=== PATIENT | female | born 1965 | race Caucasian/White ===

== ENCOUNTER → 2019-12-01 15:32 | Outpatient (BNVA) | payer SELFPAY | PROVIDERS: Family Provider Nurse Practitioner Family; PCP Nurse Practitioner Family; Visit Provider Registered Nurse | DX: R53.83 Other fatigue (principal); I10 Essential (primary) hypertension; R25.2 Cramp and spasm; F17.210 Nicotine dependence, cigarettes, uncomplicated | CPT/HCPCS: 80053; 85025 ==

== ENCOUNTER → 2019-12-24 15:03 | Outpatient (BNVA) | payer SELFPAY | PROVIDERS: Family Provider Nurse Practitioner Family; PCP Nurse Practitioner Family; Visit Provider Registered Nurse | DX: E61.1 Iron deficiency (principal); J45.20 Mild intermittent asthma, uncomplicated; F17.210 Nicotine dependence, cigarettes, uncomplicated | CPT/HCPCS: 82607; 82728; 83550; 84443; 84466; 85007; 85027 ==

== ENCOUNTER 2020-02-10 10:19 | Outpatient (RCR) | payer MEDICARE, MEDICAID, SELFPAY ==
[2020-01-27] MEDS: ferric carboxy (IVPB) 750 MG in sodium chloride 0.9% (100 ml) 100 ML 345 MG IV (08:51)
[2020-01-27 08:53] VITALS: BP 140/75; PULSE 73; RESP 18; TEMP 37.3; O2SAT 99
[2020-02-03 10:24] VITALS: BP 131/69; PULSE 70; RESP 18; TEMP 37; O2SAT 99
[2020-02-03] MEDS: ferric carboxy (IVPB) 750 MG in sodium chloride 0.9% (100 ml) 100 ML 345 MG IV (10:53)
[2020-02-10] MEDS: ferric carboxy (IVPB) 750 MG in sodium chloride 0.9% (100 ml) 100 ML 345 MG IV (10:51)
[2020-02-10 10:52] VITALS: BP 144/79; PULSE 67; RESP 18; TEMP 36.3; O2SAT 99
== END 2020-02-18 23:59 | disposition home or self-care (01) ==
LOC: OPS 10:19
PROVIDERS: PCP Nurse Practitioner Family; Visit Provider Internal Medicine
DX: K90.9 Intestinal malabsorption, unspecified (principal)
CPT/HCPCS: 96365; J1439

== ENCOUNTER → 2020-02-26 11:42 | Outpatient (BNVA) | payer MEDICARE, MEDICAID, SELFPAY | PROVIDERS: PCP Nurse Practitioner Family; Visit Provider Internal Medicine | DX: K90.9 Intestinal malabsorption, unspecified (principal) | CPT/HCPCS: 83550; 85025 ==

== ENCOUNTER → 2020-08-18 09:07 | Outpatient (BNVA) | payer MEDICARE, MEDICAID, SELFPAY | PROVIDERS: PCP Nurse Practitioner Family; Visit Provider Registered Nurse | DX: D50.9 Iron deficiency anemia, unspecified (principal); I10 Essential (primary) hypertension | CPT/HCPCS: 83550; 85025 ==

== ENCOUNTER → 2021-02-28 09:06 | Outpatient (BNVA) | payer MEDICARE, SELFPAY | PROVIDERS: PCP Nurse Practitioner Family; Visit Provider Registered Nurse | DX: I10 Essential (primary) hypertension (principal); F41.1 Generalized anxiety disorder; D50.9 Iron deficiency anemia, unspecified; K21.9 Gastro-esophageal reflux disease without esophagitis; J30.89 Other allergic rhinitis; J30.2 Other seasonal allergic rhinitis; F41.9 Anxiety disorder, unspecified; F32.9 Major depressive disorder, single episode, unspecified; J45.20 Mild intermittent asthma, uncomplicated; E61.1 Iron deficiency | CPT/HCPCS: 85025 ==

== ENCOUNTER → 2022-03-06 10:18 | Outpatient (BNVA) | payer MEDICARE, SELFPAY | PROVIDERS: PCP Nurse Practitioner Family; Visit Provider Registered Nurse | DX: J45.20 Mild intermittent asthma, uncomplicated (principal); K21.9 Gastro-esophageal reflux disease without esophagitis; I10 Essential (primary) hypertension; J30.89 Other allergic rhinitis; F41.1 Generalized anxiety disorder; F32.9 Major depressive disorder, single episode, unspecified; F41.9 Anxiety disorder, unspecified; F17.210 Nicotine dependence, cigarettes, uncomplicated | CPT/HCPCS: 80053; 80061; 85025 ==

== ENCOUNTER → 2022-10-19 10:43 | Outpatient (BNVA) | payer MEDICARE, MEDICAID, SELFPAY | PROVIDERS: PCP Nurse Practitioner Family; Visit Provider Registered Nurse | DX: Z00.00 Encounter for general adult medical examination without abnormal findings (principal); I10 Essential (primary) hypertension | CPT/HCPCS: 80053; 80061; 85025 ==

== ENCOUNTER → 2023-07-18 09:10 | Outpatient (BNVA) | payer MEDICARE, MEDICAID, SELFPAY | PROVIDERS: PCP Registered Nurse; Visit Provider Registered Nurse | DX: S60.811A Abrasion of right wrist, initial encounter (principal); W55.03XA Scratched by cat, initial encounter; I10 Essential (primary) hypertension | CPT/HCPCS: 80053; 85025; 86140; 87070; 87077; 87184 ==

== ENCOUNTER → 2023-07-24 11:50 | Outpatient (BNVA) | payer MEDICARE, MEDICAID, SELFPAY | PROVIDERS: PCP Registered Nurse; Visit Provider Registered Nurse | DX: S60.811A Abrasion of right wrist, initial encounter; W55.03XA Scratched by cat, initial encounter | CPT/HCPCS: 80053; 86140 ==

== ENCOUNTER → 2024-08-06 08:45 | Outpatient (BNVA) | payer MEDICARE, MEDICAID, SELFPAY | PROVIDERS: PCP Registered Nurse; Visit Provider Registered Nurse | DX: E61.1 Iron deficiency (principal); I10 Essential (primary) hypertension; E78.5 Hyperlipidemia, unspecified; E55.9 Vitamin D deficiency, unspecified | CPT/HCPCS: 80053; 80061; 82306; 82607; 84443; 85025 ==